=== PATIENT | male | born 1950 | race Hispanic/Latino ===

== ENCOUNTER 2017-02-28 21:49 | Emergency (ER) | payer MEDICARE ==
[~2017-02-28 21:49] MED LIST: ADRENALIN ONE; CALCIUM CHLORIDE IV ONE; D50W (25GM) IV ONE; INTROPIN DRIP 800 MG/D5W 250 ML IV ONE; SODIUM BICARBONATE IV ONE
--- NOTE | 2017-02-28 22:19 | Emergency Department Report ---
HPI - General Time Seen by Provider: 02/28/17 22:14 - HPI HPI: Room 23 Per EMS patient unresponsive and bathroom. Upon their arrival EMS reports the patient had agonal respirations and then went into PEA within 30 seconds. EMS states that difficulty intubating so the Combitube was placed. Upon arrival to the ED Combitube was removed by myself the patient was intubated with an 8.0 ET tube. Patient was protocols were continued without return of spontaneous circulation. Patient remained in PEA confirmed by bedside ultrasound performed by myself which did not reveal any cardiac motion Location: Cardiovascular system Duration: [see above] Quality: Cardiac arrest Severity: Severe Modifying factors: [see above] Context: [see above] Mode of transportation: [not driving] ED Past Medical Hx - Past Medical History Hx Hypertension: Yes Hx Diabetes: Yes Hx of Cancer: Yes (skin CA) Hx COPD: Yes - Surgical History Additional Surgical History: "stomach surgery" - Family History Family history: no significant - Social History Smoking Status: Former Smoker Substance Use Type: None - Medications Home Medications: Home Medications Medication Instructions Recorded Confirmed Last Taken Type Unobtainable [Unobtainable] 08/04/13 08/04/13 Unknown History ED Review of Systems ROS: Stated complaint: CARDIAC ARREST Other details as noted in HPI Comment: Unobtainable due to pts medical conditions Physical Exam - Physical Exam Physical Exam: GENERAL: The patient is well-developed well-nourished male lying on stretcher unresponsive receiving chest compressions from staff. [] HEENT: Normocephalic. Atraumatic. NECK: Supple. Trachea midline CHEST/LUNGS: Clear to auscultation. There is no respiratory distress noted. HEART/CARDIOVASCULAR: No heart sounds ABDOMEN: Abdomen is soft. There is no abdominal distention. SKIN: There is no rash. There is no edema. There is no diaphoresis. NEURO: GCS 3T MUSCULOSKELETAL: There is no evidence of acute injury. ED Medical Decision Making - Differential Diagnosis cardiac arrest, respiratory arrest Critical care attestation.: If time is entered above; I have spent that time in minutes in the direct care of this critically ill patient, excluding procedure time. ED Disposition Clinical Impression: Cardiac arrest Disposition: DC-20 Is pt being admited?: No Does the pt Need Aspirin: No Condition: Poor Time of Disposition: 22:15 (patient ) Blank Doc - Documentation Documentation: The patient was intubated via orotracheal route using a a 8.0 mm endotracheal tube. Rapid sequence induction was not used. Positioning was confirmed using auscultation. Post intubation chest xray was not ordered as we were continuing CPR.
[2017-02-28 22:22] VITALS: BP 0/0
== END 2017-03-01 01:18 ==
LOC: ED 21:49
DX: I46.9 Cardiac arrest, cause unspecified (principal); E11.9 Type 2 diabetes mellitus without complications; I10 Essential (primary) hypertension; J44.9 Chronic obstructive pulmonary disease, unspecified; C44.90 Unspecified malignant neoplasm of skin, unspecified; Z87.891 Personal history of nicotine dependence; Z88.2 Allergy status to sulfonamides
CPT/HCPCS: 31500; 92950; 99285; J0171; J1265